=== PATIENT | male | born 1965 | race Caucasian/White ===

== ENCOUNTER 2016-11-24 06:39 | Day surgery (SDC) | payer BC ==
[2016-11-24] MEDS ORDERED: fentaNYL 100 MCG/2 ML SDV ONE (08:48)
[2016-11-24] MEDS ORDERED: Midazolam 1 MG/ML 2 ML SDV ONE (08:48)
[2016-11-24] MEDS ORDERED: Propofol 200 MG/20 ML SDV ONE (08:48)
[2016-11-24] MEDS ORDERED: Bupivacaine 0.5% 50 ML MDV ONE (09:52)
[2016-11-24] MEDS ORDERED: Lidocaine 1% with EPINEPHrine 1:100,000 50 ML MDV ONE (09:52)
[2016-11-24 11:10] VITALS: BP 147/90
--- NOTE | 2016-11-24 12:23 | CONS ---
DATE OF SERVICE: 11/24/2016 REFERRING PHYSICIAN: CONSULTING PHYSICIAN: Jesus Capone MD REASON FOR CONSULTATION: Evaluation of left gluteal pain. HISTORY OF PRESENT ILLNESS: This is a pleasant 51-year-old male who was sent here from [place], [place], for evaluation of left buttock pain. This was noted to be associated with a palpable mass, which is a new problem and has been present for approximately 24 hours. This is not complicated by diabetes or smoking. PAST MEDICAL HISTORY: Essentially none. A fairly healthy individual. PAST SURGICAL HISTORY: Noncontributory. No surgery in this area previously. SOCIAL HISTORY: He does not smoke. He works in an engineering department. FAMILY HISTORY: Noncontributory. REVIEW OF SYSTEMS: GENERAL: The patient is healthy. HEENT: No symptoms. CARDIOVASCULAR: No myocardial infarction history. RESPIRATORY: No shortness of breath history. GASTROINTESTINAL: No symptoms. GENITOURINARY: No symptoms. NEUROLOGIC: No symptoms. PSYCH: No symptoms other than the patient reports stress at work. The remainder of review of systems was reviewed and was negative. PHYSICAL EXAMINATION: VITAL SIGNS: Temperature 98.8, blood pressure 154/95, pulse 95, respirations 18, 95% on room air. HEENT: Pupils are equal, round, and reactive to light. NECK: Supple and nontender. CARDIOVASCULAR: Regular rhythm and rate. RESPIRATORY: Lungs clear to auscultation bilaterally. EXTREMITIES: Full range of motion. Strength 5/5. NEUROLOGIC: Oriented x3. PSYCH: No gross depression. SKIN: Shows a palpable hard area in left buttock, most consistent with an abscess. IMAGING: I did review the imaging, and there is none that is relevant. ASSESSMENT AND PLAN: The patient will be taken to operating room for incision and drainage of abscess. We discussed risks, benefits, alternatives, and limitations including, but not limited to infection, bleeding, and false-positive and false-negative requirement for reoperation and chronic wounds. The patient understands these risks and wishes to proceed. Jesus Capone MD /[id number]
--- NOTE | 2016-11-26 07:33 | OR ---
DATE OF PROCEDURE: 11/24/2016 PROCEDURE PERFORMED: Incision and drainage of perirectal abscess. FINDINGS: Small perirectal abscess, left buttocks. COMPLICATIONS: None. UNIFORM ROOM ATTENDANT: None. ANESTHESIA: MAC/local. INDICATIONS: A 51-year-old male with left buttock pain requiring incision and drainage of abscess. Risks, benefits, alternatives, and limitations including, but not limited to infection, bleeding, and requirement for operation were explained to the patient and family, and they wished to proceed. PROCEDURE IN DETAIL: The patient was placed in prone position. The area of pain and tenderness was identified preoperatively by the patient. This previous scot was anesthetized with lidocaine. An 11 blade was used to make a skin incision. A Brittnee clamp was used to dilate this. A very small amount of pus was noted. This was thoroughly irrigated and an iodoform gauze was placed in this area. Dressings were applied. The patient tolerated the procedure well. Jesus Capone MD /[id number]
== END 2016-11-24 11:30 | disposition home or self-care (01) ==
LOC: JP.ACU 06:39 → JP.SDS 06:39 → JP.ACU 11:30
PROVIDERS: ATTEND Surgery
DX: K61.1 Rectal abscess (principal); Z87.891 Personal history of nicotine dependence
CPT/HCPCS: 46040; J2250; J2704; J3010